=== PATIENT | female | born 1955 | race Caucasian/White ===

== ENCOUNTER 2021-09-28 21:46 | Emergency (ER) | payer MEDICARE, SELFPAY ==
[2021-09-28 21:56] VITALS: BP 198/91; PULSE 95; RESP 17; TEMP 36.8; O2SAT 97; BMI 31.3
[2021-09-28 23:50] VITALS: BP 176/77
--- NOTE | 2021-09-29 00:09 | ED_ITS ---
HPI - General Adult General Chief complaint: Eye Problems Stated complaint: lt eye injury Time Seen by Provider: 09/28/21 23:41 Source: patient Mode of arrival: Ambulatory Limitations: no limitations History of Present Illness HPI narrative: 66-year-old female who has no prior eye surgeries. Is scheduled have cataracts removed in approximately 1 month from now. Is visiting the local area. She states that earlier today she was outside when she had a sudden onset of a floater in her left eye. It has been consistent since then however she states that it has become less intense. She describes it as a fuzzy sensation. No other vision changes. She states that it is in her left eye. Does move when she looks around. She then had a separate episode she had flashes in her left peripheral vision. These were bright flashes. They have not returned. She has never had anything like this in the past. She denies headaches, ringing in her ears, sore throat, coughing, chest pain, palpitations, shortness of breath, abdominal pain nausea vomiting. Related Data Allergies Allergy/AdvReac Type Severity Reaction Status Date / Time No Known Drug Allergies Allergy Verified 09/28/21 21:56 Review of Systems Constitutional Constitutional: Reports system reviewed and no additional complaints, except as documented Eyes Eyes: Reports as per HPI and Reports system reviewed and no additional complaints, except as documented ENT Ears, Nose, Mouth, and Throat: Reports system reviewed and no additional complaints, except as documented Cardiovascular Cardiovascular: Reports system reviewed and no additional complaints, except as documented Respiratory Respiratory: Reports system reviewed and no additional complaints, except as documented Integumentary/Breasts Skin/Breast: Reports system reviewed and no additional complaints, except as documented Neurologic Neurologic: Reports system reviewed and no additional complaints, except as documented Hematologic/Lymphatic On Anticoagulants: No Patient History Medical History Cataracts, bilateral Social History Smoking Status: Never smoker Smoking Status: Never smoker alcohol intake frequency: 0-2 drinks per day Substance Use Type: does not use Exam Initial Vital Signs Initial Vital Signs: Vital Signs Temperature 98.3 F 09/28/21 21:56 Pulse Rate 95 H 09/28/21 21:56 Respiratory Rate 17 09/28/21 21:56 Blood Pressure 198/91 H 09/28/21 21:56 Pulse Oximetry 97 09/28/21 21:56 Oxygen Delivery Method 09/28/21 21:56 Const General: cooperative, healthy appearing, comfortable and well developed [facility] Head: normal to inspection and normocephalic Nose: external nose normal Face and sinus: normal facial exam Eyes General: Yes appearance normal, both eyes and all related structures Alignment and Position: alignment normal and position normal Periorbital: periorbital findings normal Eyelids: eyelids normal Conjunctivae: conjunctivae normal Sclera: sclerae normal Pupils: PERRL and regular EOM: EOM intact bilaterally Resp Effort & Inspection: normal respiratory effort Cardio Rate: regular rate Skin General: no rashes or lesions noted Neuro General: patient alert and patient awake Cranial Nerves: CN's II-XI intact bilaterally Speech: speech normal Gait: normal gait Extrem General: normal to inspection and capillary refill normal Course Vital Signs Vital signs: Vital Signs - 8 hr 09/28/21 21:56 09/28/21 23:50 Temperature 98.3 F Pulse Rate 95 H Respiratory Rate 17 Blood Pressure 198/91 H 176/77 H Pulse Oximetry 97 Oxygen Delivery Method Room Air Medical Decision Making MDM Narrative Medical decision making narrative: She states that the floater in her left eye is actually improved since its onset earlier today. She has not had any flashes since then. Bedside ocular ultrasound shows no signs of a retinal detachment but the does appear to be a small vitreous detachment. She has no skin changes in her right eye. She is visiting the area does not have an torque tester locally. She has a follow-up when she returns home at approximately 10 14 days. No indication for advanced radiologic studies of her head. Have high suspicion for vitreous detachment given the bedside ultrasound in her presentation. Low suspicion for retinal detachment. I did discuss this with the patient. Informed her that she should follow-up with her torque tester when she returns home in she was given strict return precautions. She expressed understanding and agreement. Discharge Plan Departure Patient Disposition: Home Clinical Impression: Floaters in visual field, Vitreous detachment of left eye Instructions: DI for Visual Field Disturbances Activity Restrictions/Additional Instructions: It is important you follow-up with your eye doctor when you return back home. Until then if your symptoms worsen to include more floaters or worsening of the one that you have you do need to be re-evaluated in the emergency department.. Visit Report Forms: Patient Portal/API
== END 2021-09-29 00:27 | disposition home or self-care (01) ==
PROVIDERS: Emergency Provider Emergency Medicine
DX: H43.812 Vitreous degeneration, left eye (principal); H43.392 Other vitreous opacities, left eye
CPT/HCPCS: 99282